=== PATIENT | female | born 1985 | race Caucasian/White ===

== ENCOUNTER 2023-08-01 15:24 | Emergency (ER) | payer MEDICAID, SELFPAY ==
--- NOTE | 2023-08-01 16:10 | NUR.NOTE ---
Nursing Note: Pt's daughter (located in [place]): Summer [phone]
[2023-08-01 16:26] VITALS: BP 118/88; PULSE 96; RESP 18; TEMP 37; O2SAT 97
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
--- NOTE | 2023-08-01 17:22 | NUR.NOTE ---
Nursing Note: Pt becoming increasingly agitated. Security and physician at bedside. Pt stating, You can't keep me here! I know my rights! Pt states she wants to leave. Pt escorted to door by security w/o further incident.
== END 2023-08-01 17:02 | disposition left against medical advice (07) ==
PROVIDERS: Emergency Provider Student in an Organized Health Care Education/Training Program
DX: R45.1 Restlessness and agitation (principal); Z53.29 Procedure and treatment not carried out because of patient's decision for other reasons
CPT/HCPCS: 99283